=== PATIENT | male | born 1930 | race Caucasian/White ===

== ENCOUNTER 2017-06-16 15:33 | Emergency (ER) | payer MEDICARE ==
[2017-06-16] MEDS ORDERED: Amoxicillin/Potassium Clav 875 MG TAB ONE (17:11)
[2017-06-16] MEDS ORDERED: Bacitracin Zinc 1 Packet ONE (17:11)
--- NOTE | 2017-06-16 22:01 | RAD ---
RIGHT HAND THREE VIEWS 06/16/17 Comparison is made with an 05/11/16 study. There is marked soft tissue swelling over the dorsum of the hand over the metacarpal heads. No opaque foreign bodies were seen. No fracture was detected. 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 There is some min or degenerative change between the distal pole of the scaphoid and the trapezium. IMPRESSION: Soft tissue swelling. Bony changes that appear chronic. POS: HOME
== END 2017-06-16 17:21 | disposition home or self-care (01) ==
LOC: BURERS 15:33
DX: S61.451A Open bite of right hand, initial encounter (principal); E78.5 Hyperlipidemia, unspecified; I10 Essential (primary) hypertension; G30.9 Alzheimer's disease, unspecified; F02.80 Dementia in other diseases classified elsewhere, unspecified severity, without behavioral disturbance, psychotic disturbance, mood disturbance, and anxiety; F32.9 Major depressive disorder, single episode, unspecified; W54.0XXA Bitten by dog, initial encounter

== ENCOUNTER 2017-06-17 14:38 | Emergency (ER) | payer MEDICARE, OTHER ==
[2017-06-17] MEDS ORDERED: Bacitracin Zinc 1 Packet ONE (14:53)
== END 2017-06-17 15:04 | disposition home or self-care (01) ==
LOC: BURERS 14:38
DX: S61.411D Laceration without foreign body of right hand, subsequent encounter (principal); S61.511D Laceration without foreign body of right wrist, subsequent encounter; E78.5 Hyperlipidemia, unspecified; I10 Essential (primary) hypertension; G30.9 Alzheimer's disease, unspecified; F02.80 Dementia in other diseases classified elsewhere, unspecified severity, without behavioral disturbance, psychotic disturbance, mood disturbance, and anxiety; F32.9 Major depressive disorder, single episode, unspecified; W54.0XXD Bitten by dog, subsequent encounter
CPT/HCPCS: 99283

== ENCOUNTER → 2019-10-11 | Emergency (ER) | payer MEDICARE, OTHER ==
[~2019-10-11] MED LIST: Azithromycin 250 MG TAB ONE; Sodium Chloride 0.9% 100 ML ONE; cefTRIAXone\\ROCEPHIN 2 GM VIAL ONE
[2019-10-11 11:04] LABS: #Basophils 0.1 thou/uL (0.0-0.2); #Eosinphils 0.2 thou/uL (0.0-0.7); #Lymphocytes 0.8 thou/uL (1.20-3.40); #Monocytes 0.9 thou/uL (0.11-0.59); %Basophils 1.6 % (0.0-1.0); %Eosinophils 2.6 % (0.0-10.0); %Lymphocytes 9.4 % (21.0-51.0); %Monocytes 11.3 % (0.0-10.0); %Neutrophils 75.2 % (42.0-75.0); Hemoglobin 10.6 g/dL (14.0-18.0); Mean Corpuscular HGB CONC 33.3 g/dL (32.0-36.0); Mean Corpuscular Volume 93.2 fL (78.0-98.0); Mean Platelet Volume 5.6 fL (7.4-10.4); Platelet Count 229 thou/uL (130-400); RBC Distribution Width 13.1 % (11.5-14.5); Red Blood Cell (RBC) Count 3.44 mill/uL (4.70-6.10)
[2019-10-11 11:12] LABS: ALT (SGPT) 10 U/L (8-55); AST (SGOT) 18 U/L (5-34); Albumin 3.7 g/dL (3.4-4.8); Alkaline Phosphatase 66 U/L (40-110); Anion Gap 15 mmol/L (10-20); BUN (Urea Nitrogen) 31 mg/dL (8.4-25.7); Bilirubin, Total 0.6 mg/dL (0.2-1.2); Calc. Creatinine Clearance 0 mL/min (70-130); Calcium 8.4 mg/dL (7.8-10.44); Carbon Dioxide 20 mmol/L (23-31); Chloride 93 mmol/L (98-107); Estimated GFR-MDRD 31; Globulin 2.7 g/dL (2.4-3.5); Glucose 96 mg/dL (83-110); Lipase 49 U/L (8-78); Potassium 4.8 mmol/L (3.5-5.1); Protein, Total 6.4 g/dL (5.8-8.1); Sodium 123 mmol/L (136-145)
[2019-10-11 12:25] LABS: Bilirubin Negative (Negative); Blood, Urine Moderate (Negative); Clarity Clear (Clear); Glucose, Urine (Dipstick) Negative (Negative); Leukocyte Negative (Negative); Nitrite Negative (Negative); Protein, Urine (Dipstick) Negative (Neg-Trace); Urobilinogen 0.2 mg/dL (Less than 2)
[2019-10-11 12:36] LABS: Bacteria/HPF None Seen HPF (None Seen); Squamous Epithelial None Seen HPF (0-3); WBC/HPF None Seen HPF (0-3)
--- NOTE | 2019-10-11 13:42 | RAD ---
PORTABLE CHEST: 10/11/19 An AP portable film at 1059 is presented with no prior films available for comparison. The patient did not take a very deep breath, so it is very difficult to assess the lung bases. Nevert heless, there is increased density in the right base suggesting infiltrate here and possibly fluid. C rowding of the left lower lobe lung markings is most likely due to atelectasis. There is marked diste ntion of the stomach which helps to elevate the left hemidiaphragm. The heart size is normal consider ing the degree of inspiration and age. Calcification is seen in the aortic arch. IMPRESSION: 1. Very shallow inspiration which limits the accuracy of this film. There is moist likely a righ t basilar infiltrate +/- fluid. Basilar atelectasis is present bilaterally. At this point, I am not w illing to diagnose congestive failure given the minimal aeration of the lungs. 2. Marked gaseous distention of the stomach. POS: HOME
[2019-10-12 12:03] LABS: SARS-CoV-2 MS2 Positive; SARS-CoV-2 N Gene Negative; SARS-CoV-2 S Gene Negative; SARS-CoV-2 orf1ab Negative
== END ==
LOC: BURERS 10:21
DX: E87.1 Hypo-osmolality and hyponatremia (principal); J18.9 Pneumonia, unspecified organism; D64.9 Anemia, unspecified; E78.5 Hyperlipidemia, unspecified; E78.00 Pure hypercholesterolemia, unspecified; I10 Essential (primary) hypertension; G30.9 Alzheimer's disease, unspecified; F02.80 Dementia in other diseases classified elsewhere, unspecified severity, without behavioral disturbance, psychotic disturbance, mood disturbance, and anxiety; N40.0 Benign prostatic hyperplasia without lower urinary tract symptoms; F32.9 Major depressive disorder, single episode, unspecified; Z79.899 Other long term (current) drug therapy
CPT/HCPCS: 36415; 71045; 80053; 81003; 81015; 83605; 83690; 83880; 84484; 85025; 87040; 87086; 87633; 87635; 87798; 87804; 94760; 96365; J0696; J3490; U0002

== ENCOUNTER 2019-11-01 14:03 | Outpatient (CLI) | payer MEDICARE ==
[2019-11-01 14:13] LABS: #Basophils 0.1 thou/uL (0.0-0.2); #Eosinphils 0.3 thou/uL (0.0-0.7); #Monocytes 0.6 thou/uL (0.11-0.59); #Neutrophils 4.8 thou/uL (1.40-6.50); %Basophils 1.6 % (0.0-1.0); %Eosinophils 4.2 % (0.0-10.0); %Lymphocytes 14.2 % (21.0-51.0); %Monocytes 9.1 % (0.0-10.0); %Neutrophils 70.9 % (42.0-75.0); Hemoglobin 8.3 g/dL (14.0-18.0); Mean Corpuscular HGB CONC 30.9 g/dL (32.0-36.0); Mean Corpuscular Hemoglobin 31.3 pg (27.0-31.0); Mean Platelet Volume 5.9 fL (7.4-10.4); Platelet Count 241 thou/uL (130-400); RBC Distribution Width 14.6 % (11.5-14.5); Red Blood Cell (RBC) Count 2.66 mill/uL (4.70-6.10); White Blood Cell (WBC) Count 6.7 thou/uL (4.8-10.8)
[2019-11-01 14:16] LABS: MDiff Complete? YES; Manual Diff?? NO
== END 2019-11-01 14:04 | disposition home or self-care (01) ==
LOC: BURMANOR 14:03
PROVIDERS: ATTEND Registered Nurse Community Health
DX: D64.9 Anemia, unspecified (principal)
CPT/HCPCS: 85025

== ENCOUNTER 2020-01-25 15:12 | Outpatient (CLI) | payer MEDICARE ==
[2020-01-25 15:34] LABS: Bilirubin Negative (Negative); Blood, Urine Moderate (Negative); Clarity Cloudy (Clear); Glucose, Urine (Dipstick) Negative (Negative); Ketone, Urine Negative (Negative); Leukocyte Large (Negative); Nitrite Negative (Negative); Protein, Urine (Dipstick) Negative (Neg-Trace); Urobilinogen 0.2 mg/dL (Less than 2)
[2020-01-25 15:39] LABS: WBC/HPF Greater Than 50 HPF (0-3)
[2020-01-25 15:40] LABS: Bacteria/HPF 3+ HPF (None Seen); Squamous Epithelial 0-3 HPF (0-3); Urine Culture Reflex Yes Yes
== END 2020-01-25 15:13 | disposition home or self-care (01) ==
LOC: BURMANOR 15:12
PROVIDERS: ATTEND Registered Nurse Community Health
DX: R10.30 Lower abdominal pain, unspecified (principal)
CPT/HCPCS: 81001; 87086

== ENCOUNTER 2020-02-15 07:16 | Outpatient (CLI) | payer MEDICARE ==
[2020-02-15 07:46] LABS: ALT (SGPT) 9 U/L (8-55); AST (SGOT) 12 U/L (5-34); Albumin 3.3 g/dL (3.4-4.8); Alkaline Phosphatase 59 U/L (40-110); Anion Gap 14 mmol/L (10-20); BUN (Urea Nitrogen) 27 mg/dL (8.4-25.7); Bilirubin, Total 0.5 mg/dL (0.2-1.2); Calc. Creatinine Clearance 0 mL/min (70-130); Calcium 8.1 mg/dL (7.8-10.44); Carbon Dioxide 21 mmol/L (23-31); Chloride 107 mmol/L (98-107); Estimated GFR-MDRD 36; Glucose 85 mg/dL (83-110); Potassium 5.1 mmol/L (3.5-5.1); Protein, Total 5.3 g/dL (5.8-8.1); Sodium 137 mmol/L (136-145)
[2020-02-15 08:06] LABS: Follow-up Chemistry Comp? YES; Follow-up Result - Chemistry REPORT FAXED
== END 2020-02-15 07:17 | disposition home or self-care (01) ==
LOC: BURMANOR 07:16
PROVIDERS: ATTEND Registered Nurse Community Health
DX: E87.5 Hyperkalemia (principal)
CPT/HCPCS: 80053

== ENCOUNTER 2020-05-01 19:38 | Outpatient (CLI) | payer MEDICARE ==
[2020-05-02 17:27] LABS: SARS-CoV-2 MS2 Positive; SARS-CoV-2 N Gene Positive; SARS-CoV-2 S Gene Positive; SARS-CoV-2 by NAA DETECTED (NotDetected); SARS-CoV-2 orf1ab Positive
== END 2020-05-01 19:39 | disposition home or self-care (01) ==
LOC: BURMANOR 19:38
PROVIDERS: ATTEND Family Medicine
DX: U07.1 COVID-19 (principal)
CPT/HCPCS: 87635; U0003

== ENCOUNTER 2020-06-27 09:59 | Outpatient (CLI) | payer MEDICARE ==
[2020-06-27 10:22] LABS: ALT (SGPT) 11 U/L (8-55); AST (SGOT) 16 U/L (5-34); Albumin 3.4 g/dL (3.4-4.8); Alkaline Phosphatase 64 U/L (40-110); Anion Gap 14 mmol/L (10-20); BUN (Urea Nitrogen) 20 mg/dL (8.4-25.7); Bilirubin, Total 0.8 mg/dL (0.2-1.2); Calc. Creatinine Clearance 0 mL/min (70-130); Calcium 7.9 mg/dL (7.8-10.44); Carbon Dioxide 21 mmol/L (23-31); Chloride 98 mmol/L (98-107); Globulin 2.5 g/dL (2.4-3.5); Glucose 97 mg/dL (83-110); Potassium 4.4 mmol/L (3.5-5.1); Protein, Total 5.9 g/dL (5.8-8.1); Sodium 129 mmol/L (136-145)
== END 2020-06-27 10:00 | disposition home or self-care (01) ==
LOC: BURMANOR 09:59
PROVIDERS: ATTEND Family Medicine
DX: I10 Essential (primary) hypertension (principal)
CPT/HCPCS: 80053

== ENCOUNTER 2020-07-25 16:12 | Outpatient (CLI) | payer MEDICARE | END 2020-07-25 16:13 | disposition home or self-care (01) | LOC: BURRAD 16:12 | PROVIDERS: ATTEND Family Medicine | DX: M79.671 Pain in right foot (principal); M79.89 Other specified soft tissue disorders ==

== ENCOUNTER 2020-10-23 15:45 | Emergency (ER) | payer MEDICARE ==
[2020-10-23] MEDS ORDERED: Oxymetazoline HCl 0.05% (30 ML BOT) ONE (15:57)
[2020-10-23 16:11] LABS: #Basophils 0.1 thou/uL (0.0-0.2); #Eosinphils 0.2 thou/uL (0.0-0.7); #Neutrophils 4.9 thou/uL (1.40-6.50); %Basophils 1.6 % (0.0-1.0); %Eosinophils 2.7 % (0.0-10.0); %Lymphocytes 13.7 % (21.0-51.0); %Monocytes 14.4 % (0.0-10.0); %Neutrophils 67.6 % (42.0-75.0); Hemoglobin 7.7 g/dL (14.0-18.0); Mean Corpuscular HGB CONC 32.1 g/dL (32.0-36.0); Mean Corpuscular Hemoglobin 30.7 pg (27.0-31.0); Mean Corpuscular Volume 95.6 fL (78.0-98.0); Mean Platelet Volume 5.3 fL (7.4-10.4); Platelet Count 225 thou/uL (130-400); RBC Distribution Width 14.9 % (11.5-14.5); White Blood Cell (WBC) Count 7.2 thou/uL (4.8-10.8)
[2020-10-23 16:29] LABS: ALT (SGPT) 16 U/L (8-55); AST (SGOT) 15 U/L (5-34); Albumin 3.3 g/dL (3.4-4.8); Alkaline Phosphatase 66 U/L (40-110); Anion Gap 14 mmol/L (10-20); BUN (Urea Nitrogen) 52 mg/dL (8.4-25.7); Bilirubin, Total 0.4 mg/dL (0.2-1.2); Calc. Creatinine Clearance 0 mL/min (70-130); Calcium 8.7 mg/dL (7.8-10.44); Carbon Dioxide 26 mmol/L (23-31); Chloride 100 mmol/L (98-107); Globulin 3.4 g/dL (2.4-3.5); Glucose 98 mg/dL (83-110); Potassium 4.8 mmol/L (3.5-5.1); Protein, Total 6.7 g/dL (5.8-8.1); Sodium 135 mmol/L (136-145)
[2020-10-23 16:33] LABS: Clarity Turbid (Clear)
[2020-10-23 16:34] LABS: Leukocyte Large (Negative); Nitrite Negative (Negative); Specific Gravity, Urine 1.011 (1.002-1.036); pH, Urine 7.5 (5.0-9.0)
[2020-10-23 16:35] LABS: Bilirubin Negative (Negative); Blood, Urine Trace (Negative); Glucose, Urine (Dipstick) Negative (Negative); Ketone, Urine Negative (Negative); Protein, Urine (Dipstick) 30 mg/dL (Neg-Trace); Urobilinogen 0.2 mg/dL (Less than 2)
[2020-10-23 16:36] LABS: Bacteria/HPF 4+ HPF (None Seen); Squamous Epithelial None Seen HPF (0-3); WBC/HPF Greater Than 50 HPF (0-3)
[2020-10-23] MEDS ORDERED: Furosemide 40 MG TAB ONE (16:44)
[2020-10-23] MEDS ORDERED: Sulfameth/Trimethoprim DS 800-160mg TAB ONE (16:45)
== END 2020-10-23 18:03 | disposition home or self-care (01) ==
LOC: BURERS 15:45
DX: R04.0 Epistaxis (principal); D64.9 Anemia, unspecified; N39.0 Urinary tract infection, site not specified; I11.0 Hypertensive heart disease with heart failure; I50.9 Heart failure, unspecified; E78.5 Hyperlipidemia, unspecified; E78.00 Pure hypercholesterolemia, unspecified; G30.9 Alzheimer's disease, unspecified; F02.80 Dementia in other diseases classified elsewhere, unspecified severity, without behavioral disturbance, psychotic disturbance, mood disturbance, and anxiety; N40.0 Benign prostatic hyperplasia without lower urinary tract symptoms; I48.91 Unspecified atrial fibrillation; Z79.899 Other long term (current) drug therapy; Z79.82 Long term (current) use of aspirin
CPT/HCPCS: 36415; 80053; 81003; 81015; 83880; 84484; 85025; 99283

== ENCOUNTER 2020-10-28 16:16 | Outpatient (CLI) | payer MEDICARE ==
[2020-10-28 16:53] LABS: Bilirubin Negative (Negative); Blood, Urine Large (Negative); Clarity Cloudy (Clear); Glucose, Urine (Dipstick) Negative (Negative); Ketone, Urine Negative (Negative); Leukocyte Large (Negative); Nitrite Negative (Negative); Protein, Urine (Dipstick) 30 mg/dL (Neg-Trace); Specific Gravity, Urine 1.015 (1.005-1.030); Urobilinogen 0.2 mg/dL (Less than 2)
[2020-10-28 17:07] LABS: Bacteria/HPF 1+ HPF (None Seen); RBC/HPF Greater than 50 HPF (0-3); Renal Epithelial 0-3 HPF (None Seen); Squamous Epithelial 0-3 HPF (0-3); WBC/HPF Greater than 50 HPF (0-3)
== END 2020-10-28 16:17 | disposition home or self-care (01) ==
LOC: BURLABSP 16:16
PROVIDERS: ATTEND Family Medicine
DX: N39.0 Urinary tract infection, site not specified (principal)
CPT/HCPCS: 81003; 81015; 87086

== ENCOUNTER 2020-11-21 09:55 | Outpatient (CLI) | payer MEDICARE ==
[2020-11-21 10:06] LABS: #Basophils 0.1 thou/uL (0.0-0.2); #Eosinphils 0.2 thou/uL (0.0-0.7); #Lymphocytes 0.9 thou/uL (1.20-3.40); #Monocytes 0.8 thou/uL (0.11-0.59); %Basophils 1.8 % (0.0-1.0); %Eosinophils 2.9 % (0.0-10.0); %Lymphocytes 15.7 % (21.0-51.0); %Monocytes 12.5 % (0.0-10.0); %Neutrophils 67.1 % (42.0-75.0); Hemoglobin 7.2 g/dL (14.0-18.0); Mean Corpuscular HGB CONC 31.9 g/dL (32.0-36.0); Mean Corpuscular Hemoglobin 30.1 pg (27.0-31.0); Mean Corpuscular Volume 94.4 fL (78.0-98.0); Platelet Count 231 thou/uL (130-400); RBC Distribution Width 14.6 % (11.5-14.5); Red Blood Cell (RBC) Count 2.37 mill/uL (4.70-6.10)
== END 2020-11-21 09:56 | disposition home or self-care (01) ==
LOC: BURMANOR 09:55
PROVIDERS: ATTEND Registered Nurse Community Health
DX: N18.30 Chronic kidney disease, stage 3 unspecified (principal); J39.9 Disease of upper respiratory tract, unspecified
CPT/HCPCS: 85025

== ENCOUNTER 2020-12-28 22:35 | Observation (INO) | payer MEDICARE ==
[2020-12-28 23:14] LABS: #Basophils 0.1 thou/uL (0.0-0.2); #Eosinphils 0.2 thou/uL (0.0-0.7); #Lymphocytes 0.8 thou/uL (1.20-3.40); #Monocytes 0.8 thou/uL (0.11-0.59); #Neutrophils 6.3 thou/uL (1.40-6.50); %Basophils 1.7 % (0.0-1.0); %Eosinophils 2.2 % (0.0-10.0); %Lymphocytes 9.5 % (21.0-51.0); %Monocytes 9.5 % (0.0-10.0); %Neutrophils 77.2 % (42.0-75.0); Hemoglobin 6.9 g/dL (14.0-18.0); Mean Corpuscular HGB CONC 32.6 g/dL (32.0-36.0); Mean Corpuscular Hemoglobin 29.5 pg (27.0-31.0); Mean Corpuscular Volume 90.6 fL (78.0-98.0); Mean Platelet Volume 5.2 fL (7.4-10.4); Platelet Count 189 thou/uL (130-400); RBC Distribution Width 15.8 % (11.5-14.5); Red Blood Cell (RBC) Count 2.33 mill/uL (4.70-6.10); White Blood Cell (WBC) Count 8.2 thou/uL (4.8-10.8)
[2020-12-28 23:19] LABS: INR-International Normal Ratio 1.3; Prothrombin Time 15.8 sec (12.0-14.7)
[2020-12-28 23:27] LABS: ALT (SGPT) 24 U/L (8-55); AST (SGOT) 25 U/L (5-34); Albumin 3.1 g/dL (3.4-4.8); Alkaline Phosphatase 79 U/L (40-110); Anion Gap 16 mmol/L (10-20); BUN (Urea Nitrogen) 71 mg/dL (8.4-25.7); Bilirubin, Total 0.5 mg/dL (0.2-1.2); Calc. Creatinine Clearance 0 mL/min (70-130); Calcium 8.7 mg/dL (7.8-10.44); Carbon Dioxide 26 mmol/L (23-31); Chloride 96 mmol/L (98-107); Globulin 3.3 g/dL (2.4-3.5); Glucose 132 mg/dL (83-110); Potassium 4.2 mmol/L (3.5-5.1); Protein, Total 6.4 g/dL (5.8-8.1); Sodium 134 mmol/L (136-145)
[2020-12-28] MEDS ORDERED: Bacitracin 1 PK ONE ×2 (23:35→23:37)
[2020-12-29] MEDS ORDERED: Cephalexin 250 MG CAP ONE (00:36)
[2020-12-29] MEDS ORDERED: HYDROcodone/Acetaminophen 5/325 mg Tablet PO PRN (03:02)
[2020-12-29 03:03] VITALS: BMI 25.2
[2020-12-29] MEDS ORDERED: Ondansetron PF 4 MG/2 ML Vial IVP PRN (03:15)
[2020-12-29] MEDS ORDERED: Ondansetron ODT 4 MG TAB SL PRN (03:15)
[2020-12-29] MEDS ORDERED: Acetaminophen 325 MG TAB PO PRN (03:15)
[2020-12-29 07:33] LABS: Hemoglobin 9.1 g/dL (14.0-18.0); Platelet Count 192 thou/uL (130-400)
[2020-12-29] MEDS ORDERED: Loperamide HCl 2 MG CAP PO PRN (07:46)
[2020-12-29] MEDS ORDERED: Polyethylene Glycol 3350 17 GM Packet PO PRN (07:46)
[2020-12-29] MEDS ORDERED: Acetaminophen 500 MG TAB PO PRN (07:46)
[2020-12-29] MEDS ORDERED: Ferrous Sulfate 325 MG TAB PO SCH (08:00)
[2020-12-29] MEDS ORDERED: Folic Acid 1 MG TAB PO SCH (09:00)
[2020-12-29] MEDS ORDERED: Saccharomyces boulardii 250 MG CAP PO SCH (09:00)
[2020-12-29] MEDS ORDERED: Stress 600 With Zinc 1 TAB PO SCH (09:00)
[2020-12-29] MEDS ORDERED: Lactase 9,000 UNIT CHEWABLE TAB PO SCH (09:00)
[2020-12-29] MEDS ORDERED: Nystatin Powder 15 GM BOT TOP SCH (09:00)
[2020-12-29] MEDS ORDERED: Zinc Sulfate 220 MG CAP PO SCH (09:00)
[2020-12-29] MEDS ORDERED: hydrALAZINE 10 MG TAB PO SCH (09:00)
[2020-12-29] MEDS ORDERED: BIOTENE DT SCH (09:00)
[2020-12-29] MEDS ORDERED: Sotalol HCl 80 MG TAB PO SCH (09:00)
[2020-12-29] MEDS ORDERED: Metoprolol Tartrate 25 MG TAB PO SCH (09:00)
[2020-12-29] MEDS ORDERED: Polyethylene Glycol 3350 17 GM Packet PO SCH (09:00)
[2020-12-29] MEDS ORDERED: Furosemide 40 MG TAB PO SCH (09:00)
[2020-12-29] MEDS ORDERED: Ascorbic Acid 500 mg Chewable Tablet PO SCH (09:00)
[2020-12-29] MEDS ORDERED: Cyanocobalamin (Vitamin B-12) 1,000 MCG TAB PO SCH (09:00)
[2020-12-29] MEDS ORDERED: [UNRECOGNIZED DRUG - OTHER] PO SCH (09:00)
[2020-12-29] MEDS ORDERED: Clopidogrel Bisulfate 75 MG TAB PO SCH (09:00)
[2020-12-29] MEDS ORDERED: VIT D3 PO SCH (09:00)
[2020-12-29] MEDS ORDERED: Cholecalciferol 1,000 UNITS (25 MCG) TAB PO SCH (09:00)
[2020-12-29 09:30] VITALS: TEMP 98.6
[2020-12-29 09:44] VITALS: BP 175/74
[2020-12-29] MEDS ORDERED: Hyoscyamine Sulfate SL 0.125 mg Tablet SL SCH (12:00)
[2020-12-29] MEDS ORDERED: Aripiprazole 10 MG TAB PO SCH (21:00)
[2020-12-29] MEDS ORDERED: Melatonin 3 MG TAB PO SCH (21:00)
[2020-12-29] MEDS ORDERED: Terazosin HCl 1 MG CAP PO SCH (21:00)
== END 2020-12-29 13:20 ==
LOC: BURERS 22:35 → UNDOADMOB 12-29 00:02 → BURMED 12-29 00:02
PROVIDERS: ADMIT Family Medicine; ATTEND Family Medicine
DX: D62 Acute posthemorrhagic anemia (principal); R04.0 Epistaxis; G30.9 Alzheimer's disease, unspecified; F02.80 Dementia in other diseases classified elsewhere, unspecified severity, without behavioral disturbance, psychotic disturbance, mood disturbance, and anxiety; N40.0 Benign prostatic hyperplasia without lower urinary tract symptoms; I48.0 Paroxysmal atrial fibrillation; K21.9 Gastro-esophageal reflux disease without esophagitis; I12.9 Hypertensive chronic kidney disease with stage 1 through stage 4 chronic kidney disease, or unspecified chronic kidney disease; N18.4 Chronic kidney disease, stage 4 (severe); J96.20 Acute and chronic respiratory failure, unspecified whether with hypoxia or hypercapnia; Z79.02 Long term (current) use of antithrombotics/antiplatelets; Z79.899 Other long term (current) drug therapy; Z88.6 Allergy status to analgesic agent
CPT/HCPCS: 30901; 36415; 36430; 80053; 85014; 85018; 85025; 85049; 85610; 86850; 86900; 86901; G0378; P9016

== ENCOUNTER 2021-03-05 10:49 | Emergency (ER) | payer MEDICARE ==
[2021-03-05] MEDS ORDERED: Boostrix 0.5 ML (Tdap) VIAL ONE (12:15)
== END 2021-03-05 12:22 ==
LOC: BURERS 10:49
DX: S61.511A Laceration without foreign body of right wrist, initial encounter (principal); S40.011A Contusion of right shoulder, initial encounter; Z23 Encounter for immunization; W19.XXXA Unspecified fall, initial encounter; Z79.899 Other long term (current) drug therapy; E78.5 Hyperlipidemia, unspecified; E78.00 Pure hypercholesterolemia, unspecified; I10 Essential (primary) hypertension; D64.9 Anemia, unspecified
CPT/HCPCS: 12001; 90471; 90715